=== PATIENT | female | born 1960 | race Caucasian/White ===

== ENCOUNTER 2017-07-29 13:51 | Emergency (ER) | payer OTHER ==
[~2017-07-29] VITALS: Ht 149.9 cm; Wt 81.6 kg
[2017-07-29 14:37] VITALS: BP 108/61
--- NOTE | 2017-07-29 14:42 | NUR ---
pt to lobby awaiting for room
--- NOTE | 2017-07-29 14:53 | NUR ---
XRAY at bedside.
--- NOTE | 2017-07-29 14:53 | NUR ---
Patient ambulated to bed 03.
--- NOTE | 2017-07-29 15:01 | NUR ---
PATIENT IS A 57 YO FEMALE BIB SELF FOR A COLD WITH NASAL CONGESTION, AWAKE AND ALERT NO ACUTE DISTRESS.
[2017-07-29 16:15] VITALS: BP 108/61
--- NOTE | 2017-07-29 16:15 | NUR ---
Patient discharged with v/s stable. Written and verbal after care instructions given and explained. Patient alert, oriented and verbalized understanding of instructions. Ambulatory with steady gait. All questions addressed prior to discharge. ID band removed. Patient advised to follow up with PMD. Rx of ZA PACK AND COUGH SYRUP given. Patient educated on indication of medication including possible reaction and side effects. Opportunity to ask questions provided and answered.
== END 2017-07-29 16:15 | disposition home or self-care (01) ==
LOC: MED 13:51
DX: J06.9 Acute upper respiratory infection, unspecified (principal); I10 Essential (primary) hypertension; Z88.0 Allergy status to penicillin
CPT/HCPCS: 71010; 99283; Q0092

== ENCOUNTER 2022-03-07 14:12 | Emergency (ER) | payer OTHER ==
[~2022-03-07] VITALS: Ht 149.9 cm; Wt 83.0 kg
[2022-03-07 14:25] VITALS: BP 150/83
[2022-03-07] MEDS ORDERED: PROM118S5 PO (16:31)
[2022-03-07] MEDS ORDERED: IBUP-2213 PO (16:31)
--- NOTE | 2022-03-07 16:45 | NUR ---
CHERYL ZAMORA SAMPLE COLLECTED AND WALKED TO LAB
[2022-03-07 16:46] VITALS: BP 132/76
--- NOTE | 2022-03-07 16:46 | NUR ---
Patient discharged with v/s stable. Written and verbal after care instructions ABOUT VIRAL ILLNESS given and explained. Patient alert, oriented and verbalized understanding of instructions. Ambulatory with steady gait. All questions addressed prior to discharge. ID band removed. Patient advised to follow up with PMD. Rx of MOTRIN AND PROMETHAZINE DM given. Patient educated on indication of medication including possible reaction and side effects. Opportunity to ask questions provided and answered.
[2022-03-07] MEDS ORDERED: NIRM1TAB PO (18:42)
== END 2022-03-07 16:46 | disposition home or self-care (01) ==
LOC: MED 14:12
DX: U07.1 COVID-19 (principal); J06.9 Acute upper respiratory infection, unspecified; I10 Essential (primary) hypertension; Z79.899 Other long term (current) drug therapy; Z88.0 Allergy status to penicillin
CPT/HCPCS: 99283

== ENCOUNTER 2023-03-24 14:53 | Emergency (ER) | payer MEDICARE, MEDICAID ==
[~2023-03-24] VITALS: Ht 149.9 cm; Wt 79.4 kg
[~2023-03-24 14:53] MED LIST: IBUP-2213 PO; NIRM1TAB PO; PROM118S5 PO
[2023-03-24 15:39] VITALS: BP 134/44; PULSE 84; RESP 20; TEMP 95.1; O2SAT 98
[2023-03-24] MEDS ORDERED: KETOROLAC 30 MG/ML VIAL IM ONE (16:55)
[2023-03-24] MEDS ORDERED: DICL75EC11 PO (17:06)
[2023-03-24] MEDS ORDERED: SERT50TA PO (17:06)
[2023-03-24] MEDS ORDERED: HYDR-640 PO (17:06)
== END 2023-03-24 18:02 | disposition home or self-care (01) ==
LOC: MED 14:53
DX: G89.29 Other chronic pain (principal); M25.519 Pain in unspecified shoulder; I10 Essential (primary) hypertension; Z76.0 Encounter for issue of repeat prescription; Z88.0 Allergy status to penicillin; Z79.899 Other long term (current) drug therapy
CPT/HCPCS: 96372; 99283; J1885